=== PATIENT | male | born 1985 | race Caucasian/White ===

== ENCOUNTER 2018-01-30 11:38 | Emergency (ER) | payer SELFPAY ==
[2018-01-30] MEDS ORDERED: HYDROcodone 10MG/APAP 325MG 1 EA TAB PO ONE (11:53)
[2018-01-30] MEDS ORDERED: CHLORHEXIDINE GLUCONATE 4 % 15 ML UD TOP ONE (12:22)
--- NOTE | 2018-01-30 12:51 | RAD ---
EXAM DESCRIPTION: Forearm,Right CLINICAL HISTORY: deep laceration COMPARISON: None. TECHNIQUE: 2 views right FINDINGS: A soft tissue injury is observed in the distal ulnar side of the forearm. No foreign body is detected in the soft tissues. No bone injury is detected. Degenerative changes are observed in the wrist. IMPRESSION: Soft tissue laceration is observed without a radiopaque foreign body in the soft tissues Electronically signed by: Steve Lechuga MD 01/30/2018 12:50 PM CDT
[2018-01-30] MEDS ORDERED: NEOMYCIN-BACITRACIN-POLYMYXIN 0.9 GM UD TOP ONE (13:46)
[2018-01-30 13:55] VITALS: BP 117/71; TEMP 96; O2SAT 98
[2018-01-30] MEDS ORDERED: TETANUS,DIPHTHERIA,PERTUSSIS 1 EA SYG IM ONE (13:56)
--- NOTE | 2018-01-30 13:56 | ED.PDOC ---
History of Present Illness - General Chief Complaint: Laceration Stated Complaint: Laceration to R forearm Time Seen by Provider: 01/30/18 11:53 Source: patient Exam Limitations: no limitations - History of Present Illness Initial Comments: Patient was doing yard work just [employer] when the tool he was using slipped and cut his right medial forearm. He has had injuries to his right hand before and has had bone grafts taken from the right radius to repair those. He has pain at the laceration site. He does have chronic decreased sensation in his right fingers that he said have been diagnosed as "neuropathy". No other complaints nor injuries. Patient has had two MRSA infections that started with lacerations. Those were in his right 4th digit and left knee with the last one being 4 years ago. Timing/Duration: 1/2 hour Severity: moderate Improving Factors: nothing Worsening Factors: nothing Associated Symptoms: denies symptoms Allergies/Adverse Reactions: Allergies NO KNOWN ALLERGY Allergy (Verified 01/30/18 11:45) Home Medications: Ambulatory Orders Clindamycin HCl 300 mg PO QID #40 cap 01/30/18 Ketorolac Tromethamine [Toradol Tabs] 10 mg PO Q6HRS #16 tab 01/30/18 Review of Systems - Review of Systems Constitutional: States: no symptoms reported EENTM: States: no symptoms reported Respiratory: States: no symptoms reported Cardiology: States: no symptoms reported Gastrointestinal/Abdominal: States: no symptoms reported Genitourinary: States: no symptoms reported Musculoskeletal: States: no symptoms reported Skin: States: see HPI Neurological: States: see HPI Endocrine: States: no symptoms reported Hematologic/Lymphatic: States: no symptoms reported Past Medical History (General) - Patient Medical History Hx Stroke: No Hx Congestive Heart Failure: No Hx Diabetes: No Surgical History: no surgical history - Vaccination History Hx Tetanus, Diphtheria Vaccination: - 01/30/18 Hx Influenza Vaccination: No Hx Pneumococcal Vaccination: No - Social History Hx Tobacco Use: Yes Hx Alcohol Use: Yes - Female History Patient : No Family Medical History - Family History Mother Family History: No Known Living Status: Still Living Physical Exam - Physical Exam General Appearance: Alert Eye Exam: bilateral normal Ears, Nose, Throat: normal ENT inspection Neck: non-tender, full range of motion, supple Respiratory: lungs clear, normal breath sounds Cardiovascular/Chest: regular rate, rhythm, no edema Peripheral Pulses: radial,right: 2+, radial,left: 2+ Gastrointestinal/Abdominal: normal bowel sounds, non tender Extremity: other - 5 cm transverse laceration, 1 cm deep, on the medial right forearm at the middle third. Small amount of bleeding. 5/5 strength to supination/pronation of the right forearm, 5/5 strength to flexion/extension of the right forearm, 5/5 strength to flexion/extension/adduction/abduction of the right wrist, 5/5 strength to flexion/extension/adduction/abduction of the fingers. 5/5 strength to opposition and extension of the right thumb. Capillary refill is less than 2 seconds at the right nailbeds. Full sensation to one gram probe throughout the entire right hand and forearm. Neurologic: no motor/sensory deficits, alert, normal mood/affect, oriented x 3 DTR: 2+: Biceps, left, Biceps, right, Triceps, left, Triceps, right, Brachioradialis, left, Brachioradialis, right Skin Exam: other - see extremity Progress - Progress Progress: 01/30/18 14:01 Laceration site was prepped and draped in a sterile fashion. Wound irrigated with 200 cc sterile NS. 5 cc of lidocaine without epinephrine was injected into wound edge sites. [address] using 4-0 Ethilon with excellent wound edge approximation. Wound was dressed. Care instructions given. Patient tolerated procedure well. Patient given RX for Clindamycin due to hx of MRSA. Care instructions given. E.R. warnings given. Questions were elicited and answered. The patient voiced understanding and agreement with the plan. Departure - Departure Clinical Impression: Laceration Disposition: Discharge to Home or Self Care Condition: Good Departure Forms: ED Discharge - Pt. Copy, Patient Portal Self Enrollment Instructions: DI for Laceration Repair, DI for Laceration Repair -- Simple Diet: resume usual diet Activity: increase activity as tolerated Referrals: BURT FISCHER [Primary Care Provider] - 1-2 Weeks Prescriptions: Ketorolac Tromethamine [Toradol Tabs] 10 mg PO Q6HRS #16 tab Clindamycin HCl 300 mg PO QID #40 cap Home Medications: Ambulatory Orders Clindamycin HCl 300 mg PO QID #40 cap 01/30/18 Ketorolac Tromethamine [Toradol Tabs] 10 mg PO Q6HRS #16 tab 01/30/18 Additional Instructions: Keep wound clean. Apply topical antibiotic to it twice per day until healed. Take medications as prescribed. Return to the E.R. for pus, increasing redness or pain, or for a temperature greater than 100.4. Return to the E.R. or your regular doctor in 10 days for removal of the stitches.
== END 2018-01-30 14:10 | disposition home or self-care (01) ==
LOC: ER 11:38
DX: S51.811A Laceration without foreign body of right forearm, initial encounter (principal); Z23 Encounter for immunization; Z86.14 Personal history of Methicillin resistant Staphylococcus aureus infection; Z87.891 Personal history of nicotine dependence; W27.8XXA Contact with other nonpowered hand tool, initial encounter; Y93.H2 Activity, gardening and landscaping; Y92.9 Unspecified place or not applicable

== ENCOUNTER 2018-08-05 17:56 | Emergency (ER) | payer SELFPAY ==
[2018-08-05] MEDS: SODIUM CHLORIDE 0.9% 1000ML 1,000 ML IVS ONE ×4 (18:23→23:45)
--- NOTE | 2018-08-05 18:23 | ED.PDOC ---
History of Present Illness - General Chief Complaint: Syncope/Near Syncope Stated Complaint: passed out at the [place] Time Seen by Provider: 08/05/18 18:02 Source: patient, EMS Exam Limitations: intoxication - History of Present Illness Initial Comments: patient comes in for LOC. Per family he had been paddle boarding this afternoon and playing at the [place] with his 7 year old son. His son states that they were having a mud fight. The son had turned around to play with another child and turned back to see his dad sitting down and then falling over r unconscious. Patient has mud covering his body and his 7-year-old was trying to wake him up when 911 was called. On arrival by EMS patient was sitting up and alert and oriented although still sleepy when he was in route Patient admits to having a 24 ounce 8% alcohol beer today and took methamphetamines 2 days ago. Patient states his whole body hurts his body is shaking and very cold. Prior to this patient was in his normal usual health and he denies any or no known drug allergies. 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 Timing/Duration: unsure Severity: moderate Improving Factors: nothing Worsening Factors: nothing Associated Symptoms: weakness, other - see HPI Allergies/Adverse Reactions: Allergies NO KNOWN ALLERGY Allergy (Verified 01/30/18 11:45) Home Medications: Ambulatory Orders Unobtainable 08/05/18 Review of Systems - Review of Systems Constitutional: States: malaise, weakness EENTM: States: no symptoms reported. Denies: eye pain, ear pain, nose pain Respiratory: States: no symptoms reported. Denies: cough, short of breath Cardiology: States: no symptoms reported. Denies: chest pain, edema, palpitations Gastrointestinal/Abdominal: States: no symptoms reported. Denies: abdominal p ain, constipation, diarrhea, nausea, vomiting Genitourinary: States: no symptoms reported Neurological: States: see HPI Past Medical History (General) - Patient Medical History Hx Stroke: No Hx Congestive Heart Failure: No Hx Diabetes: No - Vaccination History Hx Tetanus, Diphtheria Vaccination: - 01/30/18 Hx Influenza Vaccination: No Hx Pneumococcal Vaccination: No - Social History Hx Tobacco Use: Yes Hx Alcohol Use: Yes Hx Substance Use: Yes - Female History Patient : No Family Medical History - Family History Mother Family History: No Known Living Status: Still Living Physical Exam - Physical Exam General Appearance: Alert, Well Nourished, Other - chills and slurring words but oriented to person, place, and time Eye Exam: bilateral normal Ears, Nose, Throat: hearing grossly normal, normal ENT inspection, normal pharynx, other - moist mucous membranes Neck: non-tender, full range of motion, supple Respiratory: chest non-tender, lungs clear, normal breath sounds Cardiovascular/Chest: normal peripheral pulses, regular rate, rhythm, no edema, no murmur Peripheral Pulses: radial,right: 2+, radial,left: 2+, dorsalis pedis,right: 2+, dorsalis pedis,left: 2+ Gastrointestinal/Abdominal: normal bowel sounds, soft, tenderness - tender to palpation over upper abdomen with abrasions ( patient states from pulling himself up on the board all day) Back Exam: normal inspection, no CVA tenderness Extremity: normal range of motion, non-tender, normal inspection Neurologic: steward/stewardess night II-XII nml as tested, no motor/sensory deficits Skin Exam: other - erythematous 1st degree sunburn on face, head, and shoulders Progress - Progress Progress: 08/05/18 18:43 after initial evaluation and warming of patient he states he has been worried that maybe he had a stroke. His mom and her family have a history of strokes and his mom's first one was in her 50s. He states he had another episode of altered LOC months ago at work. He stated he became SOB, diaphoretic, and felt "like my brain wasn't working right". No resulting numbness no change in sensation and no work up. Today he states he also felt all over pain and is not sure if his chest hurt but felt weak and confused with LOC. 08/05/18 20:03 patient is still very sedated. Can be roused with effort but falls back asleep. No respiratory distress and vitals are good. Per family he has long history of meth abuse and he has had no response to Narcan. BS is 111. He had stated on arrival that he last used 2 days ago. This may be "crash" from recent use. Per family he has 20 year history of heavy abuse of ETOH and meth Will monitor closely 08/06/18 04:56 patient is finally awake, alert and with normal neuro exam. Discussed need to monitor his urine output and return with any darkening of urine or decreased urine output. He was able to urinate here prior to leaving. We educated patient at length about need for rehab and stopping drug use. In particular, no drinking or using alcohol for next week to allow his body to heal. - Results/Orders Results/Orders: 08/05/18 18:45 EKG STAT Laboratory Results WBC 9.6 K/mm3 (4.8-10.8) 08/05/18 17:55 RBC 4.99 M/mm3 (4.70-6.10) 08/05/18 17:55 Hgb 15.1 gm/dL (14.0-18.0) 08/05/18 17:55 Hct 45.4 % (42.0-52.0) 08/05/18 17:55 MCV 91.1 fl (80.0-94.0) 08/05/18 17:55 MCH 30.3 pg (27.0-31.0) 08/05/18 17:55 MCHC 33.3 g/dL (33.0-37.0) 08/05/18 17:55 RDW 13.1 % (11.5-14.5) 08/05/18 17:55 Plt Count 274 K/mm3 (130-400) 08/05/18 17:55 MPV 8.2 fl (7.40-10.4) 08/05/18 17:55 Absolute Neuts (auto) 5.60 K/uL (1.8-6.8) 08/05/18 17:55 Absolute Lymphs (auto) 2.60 K/uL (1.0-3.4) 08/05/18 17:55 Absolute Monos (auto) 1.20 K/uL (0.2-0.8) H 08/05/18 17:55 Absolute Eos (auto) 0.10 K/uL (0.0-0.4) 08/05/18 17:55 Absolute Basos (auto) 0.00 K/uL (0.0-0.1) 08/05/18 17:55 Neutrophils % 58.7 % (42.0-78.0) 08/05/18 17:55 Lymphocytes % 27.4 % (20.0-50.0) 08/05/18 17:55 Monocytes % 12.3 % (2.0-9.0) H 08/05/18 17:55 Eosinophils % 1.2 % (1.0-5.0) 08/05/18 17:55 Basophils % 0.4 % (0.0-2.0) 08/05/18 17:55 PT 10.0 SECONDS (9.0-10.9) 08/05/18 17:55 INR 1.00 (0.9-1.15) 08/05/18 17:55 PTT (SP) 25.1 SECONDS (21.8-31.6) 08/05/18 17:55 Sodium 139 mmol/L (135-145) 08/05/18 17:55 Potassium 3.8 mmol/L (3.6-5.0) 08/05/18 17:55 Chloride 103 mmol/L (101-111) 08/05/18 17:55 Carbon Dioxide 24 mmol/L (21-31) 08/05/18 17:55 Anion Gap 15.8 (12-18) 08/05/18 17:55 BUN 13 mg/dL (7-18) 08/05/18 17:55 Creatinine 1.15 mg/dL (0.6-1.3) 08/05/18 17:55 BUN/Creatinine Ratio 11.3 (10-20) 08/05/18 17:55 POC Glucose 111 mg/dL (70-105) H 08/05/18 19:48 Random Glucose 89 mg/dL (70-105) 08/05/18 17:55 Serum Osmolality 277.1 mOsm/L (275-295) 08/05/18 17:55 Calcium 9.6 mg/dL (8.4-10.2) 08/05/18 17:55 Total Bilirubin 0.8 mg/dL (0.2-1.0) 08/05/18 17:55 AST 36 IU/L (10-42) 08/05/18 17:55 ALT 27 IU/L (10-60) 08/05/18 17:55 Alkaline Phosphatase 74 IU/L (42-121) 08/05/18 17:55 Creatine Kinase 774 IU/L (38-174) H* 08/05/18 17:55 CK-MB (CK-2) 10.1 ng/mL (0.0-4.4) H* 08/05/18 17:55 Troponin I < 0.02 ng/mL (0.01-0.05) 08/05/18 17:55 Serum Total Protein 7.9 gm/dL (6.4-8.2) 08/05/18 17:55 Albumin 4.7 g/dl (3.2-5.5) 08/05/18 17:55 Globulin 3.2 gm/dL (2.3-3.5) 08/05/18 17:55 Albumin/Globulin Ratio 1.5 (1.1-1.9) 08/05/18 17:55 Salicylates mg/dL (0-29.9) 08/05/18 17:55 Urine Opiates Screen Negative ng/mL (2000) 08/05/18 19:30 Acetaminophen < 10.0 ug/mL (10.0-30.0) L 08/05/18 17:55 Urine Barbiturates Negative ng/mL (200) 08/05/18 19:30 Ur Phencyclidine Scrn Negative ng/mL (25) 08/05/18 19:30 U Amphetamin/Meth Scrn Positive ng/mL (1000) H 08/05/18 19:30 U Benzodiazepines Scrn Negative ng/mL (200) 08/05/18 19:30 U Cocaine Metab Screen Negative ng/mL (300) 08/05/18 19:30 U Cannabinoids Screen Positive ng/mL (50) H 08/05/18 19:30 Ethyl Alcohol 13.60 mg/dL (0-79) 08/05/18 17:55 - EKG/XRAY/CT EKG: Sinus, no ST T wave changes Comments: HR 84 normal QTC and normal axis Departure - Departure Clinical Impression: Methamphetamine abuse, Altered level of consciousness Rhabdomyolysis Qualifiers: Rhabdomyolysis type: non-traumatic Qualified Code(s): M62.82 - Rhabdomyolysis Disposition: Discharge to Home or Self Care Condition: Good Departure Forms: ED Discharge - Pt. Copy, Patient Portal Self Enrollment Referrals: BURT FISCHER [Primary Care Provider] - 1-2 Weeks Home Medications: Ambulatory Orders Unobtainable 08/05/18 Additional Instructions: return with any darkening of urine or decreased urine output. need for rehab and stopping drug use. Increase water intake of next week. No NSAIDS. In particular, no drinking or using alcohol for next week to allow his body to heal.
--- NOTE | 2018-08-05 19:17 | CT ---
EXAM: CT Head Without Intravenous Contrast CLINICAL HISTORY: The patient is 33 years old and is Male; LOC, family hx of early onset CVA TECHNIQUE: Axial computed tomography images of the head/brain without intravenous contrast. Sagittal and coronal reformatted images were created and reviewed. This CT exam was performed using one or more of the following dose reduction techniques: automated exposure control, adjustment of the mA and/or kV according to patient size, and/or use of iterative reconstruction technique. COMPARISON: No relevant prior studies available. FINDINGS: BRAIN: Unremarkable. The monreal-white matter differentiation is preserved . No hemorrhage. No significant white matter disease. No edema. No extra-axial fluid collections. VENTRICLES: Unremarkable. No ventriculomegaly. BONES/JOINTS: No acute fracture. SOFT TISSUES: Unremarkable. SINUSES: Unremarkable as visualized. No acute sinusitis. MASTOID AIR CELLS: Unremarkable as visualized. No mastoid effusion. IMPRESSION: No acute intracranial findings. Electronically signed by: Noy Rome MD 08/05/2018 7:15 PM CDT
[2018-08-05] MEDS: NALOXONE HCL INJ 0.4 MG/ML VIAL IV ONE (19:27)
[2018-08-06 04:14] VITALS: O2SAT 100
[2018-08-06 05:10] VITALS: BP 135/87; TEMP 97.6
== END 2018-08-06 05:10 | disposition home or self-care (01) ==
LOC: ER 17:56
DX: M62.82 Rhabdomyolysis (principal); F15.10 Other stimulant abuse, uncomplicated; R41.82 Altered mental status, unspecified; Z87.891 Personal history of nicotine dependence
CPT/HCPCS: 36415; 36416; 70450; 80048; 80053; 80307; 80320; 80329; 82550; 82553; 82948; 84484; 85025; 85610; 85730; 93005; J2310; J7030